=== PATIENT | female | born 1965 | race African-American/Black ===

== ENCOUNTER 2017-04-19 08:37 | Emergency (ER) | payer OTHER ==
[~2017-04-19] VITALS: Ht 170.2 cm; Wt 78.5 kg
[~2017-04-19 08:37] MED LIST: LANTUS2P SC; NOVONP2 SQ; TRAM50 PO
[2017-04-19 08:39] VITALS: BP 142/78; PULSE 90; RESP 20; TEMP 98.9; O2SAT 98
[2017-04-19] MEDS ORDERED: AMIT10TA6 PO (08:52)
--- NOTE | 2017-04-19 08:57 | PD ---
HPI Chief Complaint: Medical Clearance Time Seen by Provider: 08:52 Travel History International Travel<30 days: No Contact w/Intl Traveler<30days: No Traveled to known affect area: No History of Present Illness HPI 51-year-old Afro-[place] female presents the emergency department with complaints of insomnia for weeks. Patient is a type II diabetic with history of neuropathy. Patient denies significant depression or anxiety. Denies suicidal ideation she has no other acute medical problems or complaints. She has not appointment with her doctor in 3 weeks. She has no known drug allergies. PFSH Past Medical History Cardiovascular Problems: No Diabetes: Yes Patient Takes Glucophage: No Diminished Hearing: No GERD: Yes Genitourinary: Yes (UTI'S) Medical other: Yes (diabetic neuropathy) Immunizations Current: Yes Tetanus Vaccination: > 5 Years Influenza Vaccination: Yes ?: Not Menopausal: Yes : 4 Para: 4 Past Surgical History Abdominal Surgery: Yes (choleycystectomy) Cholecystectomy: Yes Hysterectomy: Yes (partial ) Other Surgery: Yes Social History Alcohol Use: No Tobacco Use: No Substance Use: No Allergies-Medications (Allergen,Severity, Reaction): Coded Allergies: No Known Allergies (Unverified , 12/12/15) Reported Meds & Prescriptions Reported Meds & Active Scripts Active Ultram (Tramadol HCl) 50 Mg Tab 50 Mg PO Q6 PRN Reported Lantus (Insulin Glargine) 100 Units/Ml Inj 80 Unit SC HS Novolin N (Insulin Human NPH) 100 Units/Ml Inj 6 Units SQ TID Review of Systems Except as stated in HPI: all other systems reviewed are Neg General / Constitutional: No: Fever Eyes: No: Visual changes HENT: No: Headaches Cardiovascular: No: Chest Pain or Discomfort Respiratory: No: Shortness of Breath Gastrointestinal: No: Abdominal Pain Genitourinary: No: Dysuria Musculoskeletal: No: Pain Skin: No Rash Neurologic: No: Weakness Psychiatric: Positive: Anxiety (mild.), Other (insomnia.), No: Depression, Suicidal Ideations, Substance Abuse, Homicidal Ideation Endocrine: No: Polydipsia Hematologic/Lymphatic: No: Easy Bruising Physical Exam Narrative GENERAL: Patient appears in no acute distress. SKIN: Warm and dry. Supple nontender. HEAD: Atraumatic. Normocephalic. EYES: Pupils equal and round. No scleral icterus. No injection or drainage. ENT: No nasal bleeding or discharge. Mucous membranes pink and moist. Pharynx is clear. Airway is patent. NECK: Trachea midline. No JVD. CARDIOVASCULAR: Regular rate and rhythm. RESPIRATORY: No accessory muscle use. Clear to auscultation. Breath sounds equal bilaterally. GASTROINTESTINAL: Abdomen soft, non-tender, nondistended. Hepatic and splenic margins not palpable. MUSCULOSKELETAL: Extremities without clubbing, cyanosis, or edema. No obvious deformities. NEUROLOGICAL: Awake and alert. No obvious cranial nerve deficits. Motor grossly within normal limits. Five out of 5 muscle strength in the arms and legs. Normal speech. PSYCHIATRIC: Appropriate mood and affect; insight and judgment normal. Data Data Last Documented VS Vital Signs Date Time Temp Pulse Resp B/P Pulse Ox O2 Delivery O2 Flow Rate FiO2 04/19/17 08:39 98.9 90 20 142/78 98 Room Air MDM Medical Decision Making Medical Screen Exam Complete: Yes Emergency Medical Condition: Yes Differential Diagnosis Sleep disorder. Insomnia. Type 2 diabetes. Neuropathy. Anxiety. Narrative Course Patient is medically stable at time of exam. Patient is given a trial of amitriptyline 10 mg daily at bedtime #30 Patient follow with her primary care physician as scheduled or sooner when necessary. Diagnosis Primary Impression: Insomnia Qualified Code: G47.01 - Insomnia due to medical condition Additional Impression: Neuropathy Patient Instructions: Diabetic Peripheral Neuropathy (ED), General Instructions , Insomnia (ED) Additional Instructions: Patient is medically stable at time of exam. Patient is given a trial of amitriptyline 10 mg daily at bedtime #30 Patient follow with her primary care physician as scheduled or sooner when necessary. Med/Other Pt SpecificInfo: Prescription(s) given Scripts Amitriptyline 10 Mg Tab10 Mg PO HS #30 TAB Ref 0 Prov:Arie Arvizu MD 04/19/17 Disposition: 01 DISCHARGE HOME Condition: Stable Trey Townsend Apr 19, 2017 08:57
== END 2017-04-19 09:16 | disposition home or self-care (01) ==
LOC: NEPK 08:37
DX: G47.00 Insomnia, unspecified (principal); E11.40 Type 2 diabetes mellitus with diabetic neuropathy, unspecified; Z79.4 Long term (current) use of insulin; K21.9 Gastro-esophageal reflux disease without esophagitis
CPT/HCPCS: 99283

== ENCOUNTER 2017-08-26 10:26 | Emergency (ER) | payer OTHER ==
[~2017-08-26 10:26] MED LIST changes: +AMIT10TA6 PO
[2017-08-26 10:27] VITALS: BP 170/79; PULSE 104; RESP 15; O2SAT 97
--- NOTE | 2017-08-26 11:05 | PD ---
HPI Chief Complaint: Diabetic Time Seen by Provider: 11:05 Travel History International Travel<30 days: No Contact w/Intl Traveler<30days: No Traveled to known affect area: No History of Present Illness HPI 52-year-old female history of insulin-dependent diabetes presents for evaluation of dizziness. She reports that she frequently gets episodes of dizziness which she describes as room spinning sensation. It tends to be worse when she is sitting up from a lying down position. She reports that she gets these episodes quite frequently over the past few years and is typically related to her blood sugar being high. She does not check her blood sugar this morning. She denies chest pain, shortness of breath, headache, blurred vision, nausea, vomiting, abdominal pain. She reports that she has been compliant with her insulin regimen. She also complains of chronic neuropathy in the feet as well as chronic insomnia. She has no other complaints at this time. Her primary care physician is Dr. Vicente. [facility] Past Medical History Cardiovascular Problems: No Diabetes: Yes Diminished Hearing: No GERD: Yes Genitourinary: Yes (UTI'S) Immunizations Current: Yes Menopausal: Yes : 4 Para: 4 Past Surgical History Abdominal Surgery: Yes (choleycystectomy) Cholecystectomy: Yes Hysterectomy: Yes (partial ) Other Surgery: Yes Social History Alcohol Use: No Tobacco Use: No Substance Use: No Allergies-Medications (Allergen,Severity, Reaction): Coded Allergies: No Known Allergies (Unverified , 12/12/15) Reported Meds & Prescriptions Reported Meds & Active Scripts Active Amitriptyline (Amitriptyline HCl) 10 Mg Tab 10 Mg PO HS Ultram (Tramadol HCl) 50 Mg Tab 50 Mg PO Q6 PRN Reported Lantus (Insulin Glargine) 100 Units/Ml Inj 80 Unit SC HS Novolin N (Insulin Human NPH) 100 Units/Ml Inj 6 Units SQ TID Review of Systems Except as stated in HPI: all other systems reviewed are Neg Physical Exam Narrative GENERAL: Well-developed well-nourished female in no acute distress sitting upright in hospital bed. Vital signs reviewed. SKIN: Warm and dry. HEAD: Atraumatic. Normocephalic. EYES: Pupils equal and round reactive to light extraocular muscles are intact no nystagmus. No scleral icterus. No injection or drainage. ENT: No nasal bleeding or discharge. Mucous membranes pink and moist. NECK: Trachea midline. No JVD. CARDIOVASCULAR: Regular rate and rhythm. No murmur appreciated. RESPIRATORY: No accessory muscle use. Clear to auscultation. Breath sounds equal bilaterally. GASTROINTESTINAL: Abdomen soft, non-tender, nondistended. Hepatic and splenic margins not palpable. MUSCULOSKELETAL: No obvious deformities. No clubbing. No cyanosis. No edema. 2+ dorsalis pedis pulse bilaterally. NEUROLOGICAL: Awake and alert. No obvious cranial nerve deficits. Motor grossly within normal limits. Normal speech. PSYCHIATRIC: Appropriate mood and affect; insight and judgment normal. Data Data Last Documented VS Vital Signs Date Time Temp Pulse Resp B/P (MAP) Pulse Ox O2 Delivery O2 Flow Rate FiO2 08/26/17 12:49 92 16 132/70 (90) 100 08/26/17 11:28 Room Air 08/26/17 11:09 98.9 Orders Orders Electrocardiogram (08/26/17 11:10) Basic Metabolic Panel (Bmp) (08/26/17 11:10) Complete Blood Count With Diff (08/26/17 11:10) Magnesium (Mg) (08/26/17 11:10) Urinalysis - C+S If Indicated (08/26/17 11:10) Blood Glucose (08/26/17 11:10) Ecg Monitoring (08/26/17 11:10) Iv Access Insert/Monitor (08/26/17 11:10) Oximetry (08/26/17 11:10) Sodium Chlor 0.9% 1000 Ml Inj (Ns 1000 M (08/26/17 11:10) Sodium Chlor 0.9% 1000 Ml Inj (Ns 1000 M (08/26/17 11:10) Beta Hydroxybutyrate (Acetone) (08/26/17 11:12) Insulin Human Regular Inj (Novolin R Inj (08/26/17 13:15) Blood Glucose (08/26/17 13:07) Labs Laboratory Tests Test 08/26/17 11:15 White Blood Count 6.0 TH/MM3 Red Blood Count 4.42 MIL/MM3 Hemoglobin 15.1 GM/DL Hematocrit 46.6 % Mean Corpuscular Volume 105.5 FL Mean Corpuscular Hemoglobin 34.1 PG Mean Corpuscular Hemoglobin Concent 32.3 % Red Cell Distribution Width 13.8 % Platelet Count 158 TH/MM3 Mean Platelet Volume 10.0 FL Neutrophils (%) (Auto) 55.3 % Lymphocytes (%) (Auto) 30.3 % Monocytes (%) (Auto) 12.6 % Eosinophils (%) (Auto) 1.5 % Basophils (%) (Auto) 0.3 % Neutrophils # (Auto) 3.3 TH/MM3 Lymphocytes # (Auto) 1.8 TH/MM3 Monocytes # (Auto) 0.8 TH/MM3 Eosinophils # (Auto) 0.1 TH/MM3 Basophils # (Auto) 0.0 TH/MM3 CBC Comment DIFF FINAL Differential Comment Urine Color LIGHT-YELLOW Urine Turbidity CLEAR Urine pH 6.0 Urine Specific [place] 1.026 Urine Protein NEG mg/dL Urine Glucose (UA) 1000 mg/dL Urine Ketones NEG mg/dL Urine Occult Blood NEG Urine Nitrite NEG Urine Bilirubin NEG Urine Urobilinogen LESS THAN 2.0 MG/DL Urine Leukocyte Esterase SMALL Urine RBC 1 /hpf Urine WBC 1 /hpf Urine Squamous Epithelial Cells <1 /hpf Microscopic Urinalysis Comment CULT NOT INDICATED Blood Urea Nitrogen 9 MG/DL Creatinine 1.06 MG/DL Random Glucose 703 MG/DL Calcium Level 9.3 MG/DL Magnesium Level 2.3 MG/DL Sodium Level 132 MEQ/L Potassium Level 4.9 MEQ/L Chloride Level 95 MEQ/L Carbon Dioxide Level 29.6 MEQ/L Anion Gap 7 MEQ/L Estimat Glomerular Filtration Rate 66 ML/MIN B-Hydroxybutyrate 0.27 MMOL/L [facility] Medical Decision Making Medical Screen Exam Complete: Yes Emergency Medical Condition: Yes Medical Record Reviewed: Yes Differential Diagnosis Hyperglycemia, central vertigo, peripheral vertigo, dehydration, electrolyte abnormality, orthostatic hypotension, arrhythmia Narrative Course The patient was placed on ECG monitoring and pulse oximetry. A 12-lead EKG was obtained. A bedside glucose was obtained and was read as "high." Plan is for basic lab work, 2 L of IV fluids initiated. Patient's symptoms are consistent with previous episodes of hyperglycemia and neuro imaging is not warranted. She had a normal CT of the brain on December 12, 2015 when she presented with similar symptoms. Laboratory is been reviewed. Random glucose is 703, the patient was given 8 units of insulin. The patient is not in DKA. Upon reexamination the patient feels improved, her symptoms have resolved, her blood glucose is 360. Upon speaking with her further she now admits that she has not taken her insulin over the past few days. She is counseled on the importance of this and she is planning on starting her medications again. She is stable for discharge. Diagnosis Primary Impression: Hyperglycemia Additional Instructions: Take your medication as prescribed, monitor blood sugar on a regular basis, follow-up with primary care physician. Med/Other Pt SpecificInfo: No Change to Meds Disposition: 01 DISCHARGE HOME Condition: Stable Madhu Watson Aug 26, 2017 11:05
[2017-08-26 11:09] VITALS: TEMP 98.9
[2017-08-26] MEDS ORDERED: SODIUM CHLOR 0.9% 1000 ML INJ 1,000 ML IV ONE (11:10)
[2017-08-26] MEDS ORDERED: SODIUM CHLOR 0.9% 1000 ML INJ 1,000 ML IV SCH (11:10)
[2017-08-26 11:28] VITALS: O2SAT 97
[2017-08-26 12:11] LABS: BLOOD, URINE NEG (NEG); GLUCOSE,URINE 1000 mg/dL (NEG); KETONE, URINE NEG (NEG); NITRITE,URINE NEG (NEG); SQUAMOUS EPITHELIAL CELL URINE <1 /hpf (0-5); URINE COLOR LIGHT-YELLOW (YELLW/STRAW)
[2017-08-26 12:17] LABS: COMMENT (UR) CULT NOT INDICATED; CULTURE IF INDICATED CULT NOT INDICATED
[2017-08-26 12:18] LABS: AUTOMATED NEUTROPHIL # 3.3 TH/MM3 (1.8-7.7); BASOPHIL % 0.3 % (0.0-2.0); EOSINOPHIL # 0.1 TH/MM3 (0-0.4); EOSINOPHIL % 1.5 % (0.0-4.0); HEMATOCRIT 46.6 % (35.0-46.0); HEMO FLAGS DIFF FINAL; LYMPH % 30.3 % (9.0-44.0); LYMPHOCYTE # 1.8 TH/MM3 (1.0-4.8); MEAN CELL VOLUME 105.5 FL (80.0-100.0); MEAN CORPUSCULAR HEMOGLOBIN 34.1 PG (27.0-34.0); MEAN CORPUSCULAR HGB CONC 32.3 % (32.0-36.0); MONO % 12.6 % (0.0-8.0); NEUT % 55.3 % (16.0-70.0); PLATELET COUNT 158 TH/MM3 (150-450); RED BLOOD COUNT 4.42 MIL/MM3 (4.00-5.30); RED CELL DISTRIBUTION WIDTH 13.8 % (11.6-17.2)
[2017-08-26 12:45] LABS: BICARBONATE 29.6 MEQ/L (21.0-32.0); MAGNESIUM 2.3 MG/DL (1.5-2.5)
[2017-08-26 12:49] VITALS: BP 132/70; PULSE 92; RESP 16; O2SAT 100
[2017-08-26 13:04] LABS: POTASSIUM 4.9 MEQ/L (3.5-5.1)
[2017-08-26] MEDS ORDERED: INSULIN HUMAN REGULAR 1,000 UNITS/10 ML VIAL IV PUSH ONE (13:15)
[2017-08-26 14:20] VITALS: BP 142/72
--- NOTE | 2017-08-26 22:08 | EKG ---
Date Performed: 08/26/2017 Time Performed: 12:27:05 PTAGE: 52 years EKG: Sinus rhythm NONSPECIFIC T-WAVE ABNORMALITY ABNORMAL ECG PREVIOUS TRACING : 12/12/2015 10.37 Compared to prior tracing no significant change DOCTOR: Keon Box Interpretating Date/Time 08/26/2017 22:07:56
== END 2017-08-26 14:26 | disposition home or self-care (01) ==
LOC: NEPC 10:26
DX: E11.65 Type 2 diabetes mellitus with hyperglycemia (principal); R42 Dizziness and giddiness; G62.9 Polyneuropathy, unspecified; F51.04 Psychophysiologic insomnia; K21.9 Gastro-esophageal reflux disease without esophagitis; R94.31 Abnormal electrocardiogram [ECG] [EKG]; Z79.4 Long term (current) use of insulin; Z79.899 Other long term (current) drug therapy
CPT/HCPCS: 80048; 81001; 82010; 83735; 85025; 93005; 96374; 99284; J1815; J7030

== ENCOUNTER 2018-02-02 22:11 | Emergency (ER) | payer OTHER ==
[~2018-02-02] VITALS: Ht 170.2 cm; Wt 82.0 kg
[2018-02-02 22:17] VITALS: BP 182/88; PULSE 91; RESP 20; TEMP 98.6; O2SAT 100
[2018-02-02 22:38] VITALS: RESP 20; O2SAT 100
[2018-02-02] MEDS ORDERED: SODIUM CHLORIDE 0.9% FLUSH 10 ML FLUSH IV FLUSH PRN (22:45)
--- NOTE | 2018-02-02 22:45 | PD ---
HPI Chief Complaint: Altered Mental Status Time Seen by Provider: 22:33 Travel History International Travel<30 days: No Contact w/Intl Traveler<30days: No Traveled to known affect area: No History of Present Illness HPI 52-year-old female presents to the emergency department from home by EMS transport for altered mentation. According to the who relates a history as well as a patient who is awake at this time to relay her history she has not felt well recently and today noted some abdominal pain and nausea around 9 AM while she was at [employer]. Patient subsequently noted that her blood sugar was quite elevated at 700. Patient went home and continued to feel poorly throughout the day and then this evening because of history of peripheral neuropathy to occur dose of Lyrica and because she has had issues with sleeping took an Ambien for history of insomnia. states about 30 minutes after the medication he noticed that she was difficult to awaken and that her ability to communicate had changed and she was having difficulty with speaking. called EMS to evaluate the patient. According to paramedics blood sugar was 400. Patient did not have any focality on neurologic exam except for altered mentation but was able to answer all questions with simple prodding. Patient here denies headache chest pain shortness of breath nausea but does complain of abdominal discomfort and chronic lower extremity pain and tingling. Patient states that she has had these symptoms for sometimes and these are not new complaints. Patient does not report any vomiting diarrhea or dysuria. Patient states that she just has not felt well this evening. states she did not witness any seizure-like activity and there was no loss of consciousness. Patient has history of diabetes diabetic neuropathy insomnia chronic pain syndrome UTIs cholecystectomy partial hysterectomy and no tobacco use. Symptom onset approximately 50 minutes prior to arrival to the emergency department and per and essentially resolved now. Onset of symptoms approximately 30 minutes after taking sleeping pill. PFSH Past Medical History Narrative Medical diabetes diabetic neuropathy insomnia chronic pain syndrome UTIs cholecystectomy partial hysterectomy and no tobacco use; nursing notes reviewed Cardiovascular Problems: No Diabetes: Yes Diminished Hearing: No GERD: Yes Genitourinary: Yes (UTI'S) Musculoskeletal: No Neurologic: No Respiratory: No Immunizations Current: Yes ?: Not Menopausal: Yes : 4 Para: 4 Past Surgical History Abdominal Surgery: Yes (choleycystectomy) Cholecystectomy: Yes Hysterectomy: Yes (partial ) Other Surgery: Yes Social History Alcohol Use: No Tobacco Use: No Substance Use: No Allergies-Medications (Allergen,Severity, Reaction): Coded Allergies: No Known Allergies (Unverified Adverse Reaction, Unknown, 02/02/18) Reported Meds & Prescriptions Reported Meds & Active Scripts Active Amitriptyline (Amitriptyline HCl) 10 Mg Tab 10 Mg PO HS Ultram (Tramadol HCl) 50 Mg Tab 50 Mg PO Q6 PRN Reported Novolin N Inj (Insulin Human NPH) 1,000 Unit/10 Ml Vial 1 Units SQ ONCE Ambien (Zolpidem Tartrate) 5 Mg Tab 5 Mg PO HS PRN Lyrica (Pregabalin) 25 Mg Cap 25 Mg PO BID Hydrocodone-Acetamin 7.5-300 (Hydrocodone/Acetaminophen) 7.5 Mg-300 Mg Tablet Lantus (Insulin Glargine) 100 Units/Ml Inj 80 Unit SC HS Novolin N (Insulin Human NPH) 100 Units/Ml Inj 6 Units SQ TID Review of Systems Except as stated in HPI: all other systems reviewed are Neg General / Constitutional: No: Fever, Chills HENT: No: Headaches Cardiovascular: No: Chest Pain or Discomfort, Syncope Respiratory: No: Shortness of Breath Gastrointestinal: Positive: Nausea, Abdominal Pain, No: Vomiting, Diarrhea Genitourinary: No: Dysuria Musculoskeletal: Positive: Pain (Chronic pedal and lower extremity pain), No: Myalgias, Arthralgias Skin: No Rash Neurologic: Positive: Weakness, Dizziness, Change in Mentation, Slurred Speech , No: Syncope, Focal Abnormalities, Coordination Problem, Headache Psychiatric: No: Anxiety, Depression Hematologic/Lymphatic: No: Lymph Node Enlargement Physical Exam Narrative GENERAL: Well-developed well-nourished female in no acute distress no respiratory distress GCS 14 to 15 SKIN: Warm and dry. HEAD: Atraumatic. Normocephalic. EYES: Pupils equal and round. No scleral icterus. No injection or drainage. ENT: No nasal bleeding or discharge. Mucous membranes pink and moist. NECK: Trachea midline. No JVD. CARDIOVASCULAR: Regular rate and rhythm. RESPIRATORY: No accessory muscle use. Clear to auscultation. Breath sounds equal bilaterally. GASTROINTESTINAL: Abdomen soft, non-tender, nondistended. Hepatic and splenic margins not palpable. MUSCULOSKELETAL: Extremities without clubbing, cyanosis, or edema. No obvious deformities. NEUROLOGICAL: Awake and alert. No obvious cranial nerve deficits. Motor grossly within normal limits. Five out of 5 muscle strength in the arms and legs. No pronator drift. Normal speech. PSYCHIATRIC: Appropriate mood and affect; insight and judgment normal. Data Data Last Documented VS Vital Signs Date Time Temp Pulse Resp B/P (MAP) Pulse Ox O2 Delivery O2 Flow Rate FiO2 02/03/18 02:24 83 15 133/70 (91) 99 Room Air 02/02/18 22:17 98.6 Orders Orders Electrocardiogram (02/02/18 22:33) Ammonia (02/02/18 22:33) Complete Blood Count With Diff (02/02/18 22:33) Comprehensive Metabolic Panel (02/02/18 22:33) Creatine Kinase (Cpk) (02/02/18 22:33) Prothrombin Time / Inr (Pt) (02/02/18 22:33) Act Partial Throm Time (Ptt) (02/02/18 22:33) Troponin I (02/02/18 22:33) Thyroid Stimulating Hormone (02/02/18 22:33) Urinalysis - C+S If Indicated (02/02/18 22:33) Chest, Single Ap (02/02/18 22:33) Ct Brain W/O Iv Contrast(Rout) (02/02/18 22:33) Blood Glucose (02/02/18 22:33) Ecg Monitoring (02/02/18 22:33) Iv Access Insert/Monitor (02/02/18 22:33) Oximetry (02/02/18 22:33) Sodium Chloride 0.9% Flush (Ns Flush) (02/02/18 22:45) Drug Screen, Random Urine (02/02/18 22:33) Alcohol (Ethanol) (02/02/18 22:33) Tylenol (Acetaminophen) (02/02/18 22:33) Salicylates (Aspirin) (02/02/18 22:33) Magnesium (Mg) (02/02/18 22:33) Urine Culture (02/03/18 01:55) Ceftriaxone Inj (Rocephin Inj) (02/03/18 02:30) Labs Laboratory Tests Test 02/02/18 22:37 02/03/18 01:55 White Blood Count 4.7 TH/MM3 Red Blood Count 3.18 MIL/MM3 Hemoglobin 11.0 GM/DL Hematocrit 32.3 % Mean Corpuscular Volume 101.7 FL Mean Corpuscular Hemoglobin 34.5 PG Mean Corpuscular Hemoglobin Concent 33.9 % Red Cell Distribution Width 15.8 % Platelet Count 135 TH/MM3 Mean Platelet Volume 9.5 FL Neutrophils (%) (Auto) 31.3 % Lymphocytes (%) (Auto) 55.7 % Monocytes (%) (Auto) 10.7 % Eosinophils (%) (Auto) 1.9 % Basophils (%) (Auto) 0.4 % Neutrophils # (Auto) 1.5 TH/MM3 Lymphocytes # (Auto) 2.6 TH/MM3 Monocytes # (Auto) 0.5 TH/MM3 Eosinophils # (Auto) 0.1 TH/MM3 Basophils # (Auto) 0.0 TH/MM3 CBC Comment DIFF FINAL Differential Comment Prothrombin Time 9.7 SEC Prothromb Time International Ratio 1.0 RATIO Activated Partial Thromboplast Time 24.7 SEC Blood Urea Nitrogen 7 MG/DL Creatinine 0.87 MG/DL Random Glucose 359 MG/DL Total Protein 7.5 GM/DL Albumin 2.9 GM/DL Calcium Level 8.4 MG/DL Magnesium Level 1.7 MG/DL Alkaline Phosphatase 71 U/L Aspartate Amino Transf (AST/SGOT) 42 U/L Alanine Aminotransferase (ALT/SGPT) 38 U/L Total Bilirubin 0.8 MG/DL Sodium Level 140 MEQ/L Potassium Level 4.0 MEQ/L Chloride Level 105 MEQ/L Carbon Dioxide Level 27.5 MEQ/L Anion Gap 8 MEQ/L Estimat Glomerular Filtration Rate 83 ML/MIN Ammonia 35 MCMOL/L Total Creatine Kinase 50 U/L Troponin I LESS THAN 0.02 NG/ML Thyroid Stimulating Hormone 3rd Gen 3.730 uIU/ML Salicylates Level LESS THAN 1.7 MG/DL Acetaminophen Level LESS THAN 2.0 MCG/ML Ethyl Alcohol Level LESS THAN 3 MG/DL Urine Color YELLOW Urine Turbidity CLEAR Urine pH 6.0 Urine Specific [place] 1.012 Urine Protein NEG mg/dL Urine Glucose (UA) 1000 mg/dL Urine Ketones NEG mg/dL Urine Occult Blood NEG Urine Nitrite POS Urine Bilirubin NEG Urine Urobilinogen 2.0 MG/DL Urine Leukocyte Esterase NEG Urine RBC LESS THAN 1 /hpf Urine WBC 1 /hpf Urine Bacteria FEW /hpf Urine Mucus FEW /lpf Microscopic Urinalysis Comment CATH-CULTURE IND Urine Opiates Screen NEG Urine Barbiturates Screen NEG Urine Amphetamines Screen NEG Urine Benzodiazepines Screen NEG Urine Cocaine Screen NEG Urine Cannabinoids Screen NEG MDM Medical Decision Making Medical Screen Exam Complete: Yes Emergency Medical Condition: Yes Medical Record Reviewed: Yes Interpretation(s) EKG: Normal sinus rhythm rate [address] elevation or injury pattern change noted Last Impressions Head CT 02/02/182232 Signed Impressions: Service Date/Time: Friday, February 02, 2018 23:24 - CONCLUSION: Normal examination. Gilberto Matos MD Chest X-Ray 02/02/182232 Signed Impressions: Service Date/Time: Friday, February 02, 2018 22:39 - CONCLUSION: 1. Minimal basilar atelectasis. Lico Loo MD CBC & BMP Diagram 02/02/18 22:37 Total Protein 7.5, Albumin 2.9 L, Calcium Level 8.4 L, Magnesium Level 1.7, Alkaline Phosphatase 71, Aspartate Amino Transf (AST/SGOT) 42 H, Alanine Aminotransferase (ALT/SGPT) 38, Total Bilirubin 0.8 Vital Signs Date Time Temp Pulse Resp B/P (MAP) Pulse Ox O2 Delivery O2 Flow Rate FiO2 02/03/18 02:24 83 15 133/70 (91) 99 Room Air 02/02/18 22:38 20 100 Room Air 02/02/18 22:25 91 20 100 Room Air 02/02/18 22:17 98.6 91 20 182/88 (119) 100 Differential Diagnosis Adverse medication reaction, TIA, CVA, uncontrolled diabetes, arrhythmia, anemia , polysubstance ingestion, ME, seizure Narrative Course Patient placed on physician office secretary IV access obtained specimens collected and sent for resulting bedside glucose 369 EKG labs and imaging study ordered; is at bedside and reportedly son is bringing patient's medications to the hospital It is now 2:25 AM patient is clinically and symptomatically improved GCS is 15; CT brain noncontrast reveals no acute abnormality chest x-ray reveals no acute abnormality CBC is automated differential total white cell count is not elevated Patient is identified to have some mild hyperglycemia otherwise chemistries grossly within normal limits; serum ammonia was minimally elevated at 35 upper limit of normal is 32 nonspecific doubt reflects seizure activity Urinalysis catheterized specimen is positive for nitrites as well as bacteria cultures indicated and patient administered first dose of antibiotic in the emergency department Son was able to confirm that patient did take Ambien this evening by bringing the patient's medications to the emergency department Patient is stable at this time for follow-up as an outpatient with her primary care provider and outpatient management. Patient able to ambulate independently to bathroom and back without assistance patient given prescription for Cipro and encouraged to take antibiotic and to follow-up with her primary care provider. Diagnosis Primary Impression: Altered mental status, unspecified Qualified Codes: R41.82 - Altered mental status, unspecified Additional Impressions: Hyperglycemia due to type 2 diabetes mellitus Adverse effects of medication UTI (urinary tract infection) Referrals: Primary Care Physician 1 day Patient Instructions: General Instructions Additional Instructions: Increase fluid hydration Monitor blood sugars closely Follow-up with primary care provider Complete course of antibiotic as prescribed Administer acetaminophen/Tylenol for fever 100.4F or greater Do not use Ambien or other sleep aid products Return to the emergency department for any concerns or change in condition Med/Other Pt SpecificInfo: Prescription(s) given, Med Stopped (Ambien) Scripts Ciprofloxacin (Cipro) 500 Mg Tab 500 MG PO BID for Infection for 7 Days, #14 TAB 0 Refills Prov: Sharon Laurent MD 02/03/18 Disposition: 01 DISCHARGE HOME Condition: Stable Sharon Laurent MD Feb 02, 2018 22:45
[2018-02-02] MEDS ORDERED: PREG25 PO (22:48)
[2018-02-02] MEDS ORDERED: NOVONP2 SQ (22:48)
[2018-02-02] MEDS ORDERED: [UNRECOGNIZED DRUG - CODE] (22:48)
[2018-02-02] MEDS ORDERED: AMBI5TAB PO (22:48)
--- NOTE | 2018-02-02 22:50 | RADRPT ---
EXAM DATE/TIME: 02/02/2018 22:39 [place] COMPARISON: No previous studies available for comparison. INDICATIONS : Syncope MEDICAL HISTORY : None. SURGICAL HISTORY : None. ENCOUNTER: Initial ACUITY: 1 day PAIN SCORE: 0/10 LOCATION: chest FINDINGS: A single view of the chest demonstrates the lungs to be symmetrically aerated without evidence of mas s, infiltrate or effusion. The cardiomediastinal contours are unremarkable. Osseous structures are intact. CONCLUSION: 1. Minimal basilar atelectasis. Lico Loo MD on February 02, 2018 at 22:47 Board Certified Radiologist. This report was verified electronically.
[2018-02-02 23:04] LABS: AUTOMATED NEUTROPHIL # 1.5 TH/MM3 (1.8-7.7); BASOPHIL % 0.4 % (0.0-2.0); EOSINOPHIL # 0.1 TH/MM3 (0-0.4); EOSINOPHIL % 1.9 % (0.0-4.0); HEMATOCRIT 32.3 % (35.0-46.0); LYMPH % 55.7 % (9.0-44.0); LYMPHOCYTE # 2.6 TH/MM3 (1.0-4.8); MEAN CELL VOLUME 101.7 FL (80.0-100.0); MEAN CORPUSCULAR HEMOGLOBIN 34.5 PG (27.0-34.0); MEAN CORPUSCULAR HGB CONC 33.9 % (32.0-36.0); MEAN PLATELET VOLUME 9.5 FL (7.0-11.0); MONO % 10.7 % (0.0-8.0); MONOCYTE # 0.5 TH/MM3 (0-0.9); NEUT % 31.3 % (16.0-70.0); PLATELET COUNT 135 TH/MM3 (150-450); RED BLOOD COUNT 3.18 MIL/MM3 (4.00-5.30); RED CELL DISTRIBUTION WIDTH 15.8 % (11.6-17.2); WHITE BLOOD COUNT 4.7 TH/MM3 (4.0-11.0)
[2018-02-02 23:14] LABS: PROTHROMBIN TIME - PATIENT 9.7 SEC (9.8-11.6)
--- NOTE | 2018-02-02 23:36 | RADRPT ---
EXAM DATE/TIME: 02/02/2018 23:24 [place] COMPARISON: CT BRAIN W/O CONTRAST, December 12, 2015, 9:36. INDICATIONS : Altered mental status. RADIATION DOSE: 39.58 CTDIvol (mGy) MEDICAL HISTORY : Renal failure, acute. SURGICAL HISTORY : Cholecystectomy. Hysterectomy. ENCOUNTER: Initial ACUITY: 1 day PAIN SCALE: 0/10 LOCATION: cranial TECHNIQUE: Multiple contiguous axial images were obtained of the head. Using automated exposure control and adj ustment of the mA and/or kV according to patient size, radiation dose was kept as low as reasonably a chievable to obtain optimal diagnostic quality images. DICOM format image data is available electro nically for review and comparison. FINDINGS: CEREBRUM: The ventricles are normal for age. No evidence of midline shift, mass lesion, hemorrhage or acute in farction. No extra-axial fluid collections are seen. POSTERIOR FOSSA: The cerebellum and brainstem are intact. The 4th ventricle is midline. The cerebellopontine angle i s unremarkable. EXTRACRANIAL: The visualized portion of the orbits is intact. SKULL: The calvaria is intact. No evidence of skull fracture. CONCLUSION: Normal examination. Gilberto Matos MD on February 02, 2018 at 23:32 Board Certified Radiologist. This report was verified electronically.
[2018-02-02 23:43] LABS: ACETAMINOPHEN LESS THAN 2.0 MCG/ML (10.0-30.0); ALBUMIN 2.9 GM/DL (3.4-5.0); ALKALINE PHOSPHATASE 71 U/L (45-117); ALT (GPT) 38 U/L (10-53); AST (GOT) 42 U/L (15-37); BICARBONATE 27.5 MEQ/L (21.0-32.0); BLOOD UREA NITROGEN 7 MG/DL (7-18); CALCIUM 8.4 MG/DL (8.5-10.1); CHLORIDE 105 MEQ/L (98-107); CREATININE 0.87 MG/DL (0.50-1.00); GLOMERULAR FILTRATION RATE 83 ML/MIN (>89); GLUCOSE,RANDOM 359 MG/DL (74-106); MAGNESIUM 1.7 MG/DL (1.5-2.5); SODIUM (NA) 140 MEQ/L (136-145); TOTAL BILIRUBIN ADULT 0.8 MG/DL (0.2-1.0); TOTAL PROTEIN 7.5 GM/DL (6.4-8.2); TROPONIN I LESS THAN 0.02 NG/ML (0.02-0.05)
[2018-02-03 02:16] LABS: BACTERIA, URINE FEW /hpf; BILIRUBIN, URINE NEG (NEG); BLOOD, URINE NEG (NEG); GLUCOSE,URINE 1000 mg/dL (NEG); KETONE, URINE NEG (NEG); MUCUS URINE FEW /lpf (OCC); NITRITE,URINE POS (NEG); URINE COLOR YELLOW (YELLW/STRAW); URINE LEUKOCYTE ESTERASE NEG (NEG)
[2018-02-03 02:24] VITALS: BP 133/70; PULSE 83; RESP 15; O2SAT 99
[2018-02-03] MEDS ORDERED: cefTRIAXone INJ 1,000 MG in SODIUM CHLORIDE 0.9% INJ 100 ML IV ONE (02:30)
[2018-02-03] MEDS ORDERED: CIPR-9 PO (03:26)
--- NOTE | 2018-02-03 16:43 | EKG ---
Date Performed: 02/02/2018 Time Performed: 22:56:37 PTAGE: 52 years EKG: Sinus rhythm POSSIBLE LEFT ATRIAL ENLARGEMENT NONSPECIFIC T-WAVE ABNORMALITY Since previous tracing, no significa nt change noted BORDERLINE ECG PREVIOUS TRACING : 08/26/2017 12.27 DOCTOR: Chris Gordon Interpretating Date/Time 02/03/2018 16:41:12
== END 2018-02-03 04:02 | disposition home or self-care (01) ==
LOC: NEPC 22:11
DX: R41.82 Altered mental status, unspecified (principal); E11.65 Type 2 diabetes mellitus with hyperglycemia; T50.905A Adverse effect of unspecified drugs, medicaments and biological substances, initial encounter; N39.0 Urinary tract infection, site not specified; R94.31 Abnormal electrocardiogram [ECG] [EKG]; E11.40 Type 2 diabetes mellitus with diabetic neuropathy, unspecified; B96.20 Unspecified Escherichia coli [E. coli] as the cause of diseases classified elsewhere; R10.9 Unspecified abdominal pain; R11.0 Nausea
CPT/HCPCS: 70450; 71045; 80053; 80307; 81001; 82140; 82550; 83735; 84443; 84484; 85025; 85610; 85730; 87077; 87086; 87186; 93005; 96365; 99285; J0696